=== PATIENT | female | born 1930 ===

== ENCOUNTER 2017-07-11 14:24 | Outpatient (CLI) | payer MEDICARE, OTHER | END 2017-07-11 14:25 | disposition home or self-care (01) | LOC: BICRAD 14:24 | PROVIDERS: ATTEND Anesthesiology Pain Medicine | DX: M96.89 Other intraoperative and postprocedural complications and disorders of the musculoskeletal system (principal); M16.11 Unilateral primary osteoarthritis, right hip ==

== ENCOUNTER 2018-02-07 11:59 | Outpatient (CLI) | payer MEDICARE ==
--- NOTE | 2018-02-07 15:04 | MRI ---
NONCONTRAST MRI LUMBAR SPINE: 02/07/2018 HISTORY: Lumbar radiculopathy. The patient complains of bilateral leg pain, greater on the right. COMPARISON: MRI lumbar spine on 07/28/2015, as well as study on 06/20/2010. FINDINGS: The T2 hyperintense, cystic renal lesion, mid portion, right kidney, is again seen, with a few very t iny, subcentimeter, [id number]-characterize, increased T2-weighted signal intensity foci in the sup erior pole right kidney, stable when compared to the prior study, as well as the study in 2010, and m ost likely represent renal cysts. Retroperitoneal structures otherwise demonstrate a normal MRI appe arance. There is left convex rotoscoliosis of the lumbar spine. Multilevel degenerative changes are again se en throughout the lumbar spine. The conus medullaris is normal in appearance and terminates at the level of the L2 vertebral body. Multilevel endplate degenerative changes are again present. A stable heterogeneous focus is present in the T12 vertebral body which is stable since study in 2010, suggesting a benign finding. Heterogen eous signal abnormality within the anterior aspect of the S1 vertebral body is again seen, and this c ould represent an area of osteonecrosis or bone infarction. L1-L2: There is disk desiccation with broad-based disk osteophyte complex and facet hypertrophic geraldine nge, as well as ligamentous thickening. There is moderate narrowing of the central spinal canal, as well as narrowing of the lateral recesses. There is moderate right-sided and mild left-sided neural foraminal narrowing. L2-L3: There is wedge-shaped compression deformity of the L2 vertebral body, when compared to prior study in 2015, suggesting a compression fracture, but there is no signal abnormality seen on the flui d-sensitive sequence, suggesting that this represents a more remote wedge-shaped compression deformit y. There is disk desiccation with a broad-based disk osteophyte complex as well as facet hypertrophi c changes. There is moderate narrowing of the central spinal canal, with narrowing of the lateral re cesses bilaterally, much greater on the right. The left neural foramen appears patent, but there is mild to moderate right-sided neural foraminal narrowing. L3-L4: There is disk desiccation. Broad-based disk osteophyte complex is present, with prominent fa cet hypertrophic changes. There is mild narrowing of the central spinal canal at this level. There is mild to moderate bilateral neural foraminal narrowing. L4-L5: There is disk desiccation and prominent endplate degenerative changes. There is a broad-base d disk osteophyte complex and facet hypertrophic changes noted. Again noted is severe bilateral neur al foraminal narrowing with mild to moderate central canal narrowing. L5-S1: There is a broad-based disk osteophyte complex and prominent facet hypertrophic changes. The re is minimal effacement of the ventral aspect of the thecal sac. There is severe left-sided neural foraminal narrowing. The right neural foramen is patent. IMPRESSION: 1. Multilevel degenerative changes seen throughout the lumbar spine, overall similar to the prior ex amination. 2. Interval development of a wedge-shaped compression fracture of the L2 vertebral body, but no incr eased T2 weighted signal intensity is seen on the fluid sensitive sequence, suggesting this is more r emote in origin. 3. Left convex scoliosis of the lumbar spine. 4. Right renal cysts. POS: KENNETH
== END 2018-02-07 12:00 | disposition home or self-care (01) ==
LOC: BICMRI 11:59
PROVIDERS: ATTEND Anesthesiology Pain Medicine
DX: M48.061 Spinal stenosis, lumbar region without neurogenic claudication (principal); M47.26 Other spondylosis with radiculopathy, lumbar region; S32.020A Wedge compression fracture of second lumbar vertebra, initial encounter for closed fracture; M41.9 Scoliosis, unspecified; N28.1 Cyst of kidney, acquired
CPT/HCPCS: 72148